=== PATIENT | male | born 1995 | race Caucasian/White ===

== ENCOUNTER 2017-03-07 17:15 | Emergency (ER) | payer OTHER ==
[2017-03-07 17:44] VITALS: BP 124/75; PULSE 88; TEMP 97.9; BMI 39.4
--- NOTE | 2017-03-07 17:47 | PDOC ---
History of Present Illness - General History Source: Patient Exam Limitations: No Limitations - History of Present Illness Initial Comments: The patient is a 21 year old M with no pertinent past medical history who presents with R foot pain for 2 days. Patient reports he was [place] when a man with a steel toe boot stepped on the inferior aspect of his R foot. The patient reports the pain is localized to heel region. <Heidy Watson - Last Filed: 03/07/17 18:26> <Josiah Cruz - Last Filed: 03/07/17 18:53> - General Chief Complaint: Injury Stated Complaint: RIGHT FOOT INJURY Time Seen by Provider: 03/07/17 17:46 Past History <Heidy Watson - Last Filed: 03/07/17 18:26> - Past Medical History Anemia: No Asthma: Yes (Mild case as per pt) Cancer: No Cardiac Disorders: No CVA: No COPD: No CHF: No Dementia: No Diabetes: No GI Disorders: No Disorders: No HTN: No Hypercholesterolemia: No Kidney Stones: No Liver Disease: No Psychiatric Problems: Yes (BIPOLAR) Suicide Attempt (Hx): No Seizures: Yes (As a child- last one at age 4) Thyroid Disease: Yes - Surgical History Abdominal Surgery: No Appendectomy: No Cardiac Surgery: No Cholecystectomy: No Lung Surgery: No Neurologic Surgery: No Orthopedic Surgery: No - Reproductive History Testicular Surgery: No - Immunization History Immunization Up to Date: No - Psycho/Social/Smoking Cessation Hx Anxiety: No Suicidal Ideation: No Smoking Status: Yes Smoking History: Current every day smoker Have you smoked in the past 12 months: Yes Number of Cigarettes Smoked Daily: 10 Cigars Per Day: 0 Information on smoking cessation initiated: Yes 'Breaking Loose' booklet given: 03/07/17 Hx Alcohol Use: No Drug/Substance Use Hx: No Substance Use Type: None Hx Substance Use Treatment: Yes (Alcohol) <Josiah Cruz - Last Filed: 03/07/17 18:53> - Past Medical History Allergies/Adverse Reactions: Allergies Allergy/AdvReac Type Severity Reaction Status Date / Time No Known Allergies Allergy Verified 03/07/17 17:23 Home Medications: Ambulatory Orders No Home Medications 0 dose .ROUTE UTDICT 02/28/14 Ibuprofen 800 mg PO TID #30 tablet 03/07/17 Review of Systems - Review of Systems Able to Perform ROS?: Yes Comments:: GENERAL/CONSTITUTIONAL: No fever or chills. No weakness. HEAD, EYES, EARS, NOSE AND THROAT: No change in vision. No ear pain or discharge. No sore throat. CARDIOVASCULAR: No chest pain or shortness of breath. RESPIRATORY: No cough, wheezing, or hemoptysis. GASTROINTESTINAL: No nausea, vomiting, diarrhea or constipation. GENITOURINARY: No dysuria, frequency, or change in urination. MUSCULOSKELETAL: R foot edema and pain. No neck or back pain. SKIN: No rash NEUROLOGIC: No headache, vertigo, loss of consciousness, or change in strength/ sensation. ENDOCRINE: No increased thirst. No abnormal weight change. HEMATOLOGIC/LYMPHATIC: No anemia, easy bleeding, or history of blood clots. ALLERGIC/IMMUNOLOGIC: No hives or skin allergy. <Heidy Watson - Last Filed: 03/07/17 18:26> *Physical Exam - Vital Signs Last Vital Signs Temp Pulse Resp BP Pulse Ox 97.9 F 88 16 124/75 97 03/07/17 17:23 03/07/17 17:23 03/07/17 17:23 03/07/17 17:23 03/07/17 17:23 - Physical Exam Comments: GENERAL: Awake, alert, and fully oriented, in no acute distress HEAD: No signs of trauma EYES: PERRLA, EOMI, sclera anicteric, conjunctiva clear ENT: Auricles normal inspection, hearing grossly normal, nares patent, oropharynx clear without exudates. Moist mucosa NECK: Normal ROM, supple, no lymphadenopathy, JVD, or masses LUNGS: Breath sounds equal, clear to auscultation bilaterally. No wheezes, and no crackles HEART: Regular rate and rhythm, normal S1 and S2, no murmurs, rubs or gallops ABDOMEN: Soft, nontender, normoactive bowel sounds. No guarding, no rebound. No masses EXTREMITIES: Normal range of motion, no edema. No clubbing or cyanosis. No cords or erythema. Edema to medial aspect of R foot. Tenderness on heel of R foot. NEUROLOGICAL: Cranial nerves II through XII grossly intact. Normal speech, gait not assessed. SKIN: Warm, Dry, normal turgor, no rashes or lesions noted. <Heidy Watson - Last Filed: 03/07/17 18:26> - Vital Signs Last Vital Signs Temp Pulse Resp BP Pulse Ox 97.9 F 88 16 124/75 97 03/07/17 17:23 03/07/17 17:23 03/07/17 17:23 03/07/17 17:23 03/07/17 17:23 <Josiah Cruz - Last Filed: 03/07/17 18:53> Medical Decision Making - Medical Decision Making Will obtain x-ray of foot. Will reassess <ShirleyHeidy - Last Filed: 03/07/17 18:26> *DC/Admit/Observation/Transfer - Attestations Scribe Attestion: Documentation prepared by Heidy Watson, acting as medical support assistant for Josiah Cruz MD/. <ShirleyHeidy - Last Filed: 03/07/17 18:26> - Discharge Dispostion Admit: No - Attestations Physician Attestion: 03/07/17 17:47 I, Dr. Josiah Cruz, attest that this document has been prepared under my direction and personally reviewed by me in its entirety. I further attest, that it accurately reflects all work, treatment, procedures and medical decision -making performed by me. <Josiah Cruz - Last Filed: 03/07/17 18:53> Diagnosis at time of Disposition: Contusion of foot Qualifiers: Encounter type: initial encounter Laterality: right Qualified Code(s): S90.31XA - Contusion of right foot, initial encounter - Discharge Dispostion Disposition: HOME Condition at time of disposition: Good - Prescriptions Prescriptions: Ibuprofen 800 mg PO TID #30 tablet - Referrals Referrals: Lacho Celis MD [Staff Physician] - Wes Harden MD [Staff Physician] - - Patient Instructions Printed Discharge Instructions: DI for Contusion, Contusion Additional Instructions: Nino.... Keep it elevated as much as possible. Take the motrin for pain Wear the splint until the orthopedic doctor tells you to stop it. Best- Dr. Josiah Cruz
[2017-03-07] MEDS ORDERED: IBUPROFEN 400 MG TABLET (FP) PO ONE ×2 (18:48→19:01)
== END 2017-03-07 19:10 | disposition home or self-care (01) ==
LOC: FER 17:15
DX: S90.31XA Contusion of right foot, initial encounter (principal); W50.0XXA Accidental hit or strike by another person, initial encounter; Y93.89 Activity, other specified; Y92.252 Music hall as the place of occurrence of the external cause; J45.909 Unspecified asthma, uncomplicated; F31.9 Bipolar disorder, unspecified; F17.210 Nicotine dependence, cigarettes, uncomplicated
CPT/HCPCS: 73610-TC-RT; 73630-TC-RT; 99282-25